=== PATIENT | male | born 1980 | race Caucasian/White ===

== ENCOUNTER 2016-09-25 11:43 | Emergency (ER) | payer SELFPAY ==
[2016-09-25 12:24] VITALS: BP 128/76
--- NOTE | 2016-09-25 12:50 | UC ---
Cardiac HPI - HPI Summary HPI Summary: 5 DAYS AGO DEVELOPED LEFT MID/UPPER BACK PAIN. [facility] [place] 3 DAYS AGO AND TX FOR MUSCLE STRAIN WITH MELOXICAM AND TIZANIDINE. PAIN HAS WORSENED. RADIATES THROUGH TO LEFT LATERAL CHEST. DENIES SOB, NAUSEA OR SWEATS. - History of Current Complaint Chief Complaint: UCBackPain Stated Complaint: SHOULDER, RIB AND CHEST PAIN Time Seen by Provider: 09/25/16 12:12 Hx Obtained From: Patient Onset/Duration: Gradual Onset, Lasting Days, Still Present Timing: Constant Initial Severity: Moderate Current Severity: Moderate Pain Intensity: 6 Chest Pain Location: Left Lateral Aggravating: Exertion, Movement, Nothing - TOUCH Alleviating: Nothing Associated Signs & Symptoms: Positive: Chest Pain, Back Pain. Negative: SOB, Fever, Diaphoresis, Nausea/Vomiting, Palpitations, Cough - Allergy/Home Medications Allergies/Adverse Reactions: Allergies Allergy/AdvReac Type Severity Reaction Status Date / Time No Known Allergies Allergy Verified 06/23/15 17:04 Home Medications: Home Medications Meloxicam [Mobic] 15 mg PO 09/25/16 [History] Pantoprazole TAB (NF) [Protonix TAB (NF)] 09/25/16 [History] Tizanidine HCl [Zanaflex] 09/25/16 [History] PMH/Surg Hx/FS Hx/Imm Hx Previously Healthy: Yes Endocrine History Of: Denies: Diabetes, Thyroid Disease Cardiovascular History Of: Denies: Cardiac Disorders, Hypertension Respiratory History Of: Denies: COPD, Asthma GI/ History Of: Denies: Ulcer - Surgical History Surgical History: None - Family History Known Family History: Positive: Hypertension, Diabetes - Social History Alcohol Use: None Substance Use Type: None Smoking Status (MU): Never Smoked Tobacco Review of Systems Constitutional: Negative Skin: Negative Respiratory: Negative Cardiovascular: Chest Pain Gastrointestinal: Negative Genitourinary: Negative Musculoskeletal: Myalgia All Other Systems Reviewed And Are Negative: Yes Physical Exam Triage Information Reviewed: Yes Appearance: Well-Appearing, Well-Nourished, Pain Distress - SIGNIFICANT PAIN WITH PALPATION OF LEFT MID BACK Vital Signs: Initial Vital Signs Temp 98.1 F 09/25/16 11:52 Pulse 79 09/25/16 11:52 Resp 16 09/25/16 11:52 BP 128/76 09/25/16 11:52 Pulse Ox 98 09/25/16 11:52 Vital Signs Reviewed: Yes Eyes: Positive: Conjunctiva Clear ENT: Positive: Hearing grossly normal Neck: Positive: Supple Respiratory Exam: Normal Cardiovascular Exam: Normal Abdomen Description: Positive: Soft Musculoskeletal: Positive: No Edema, Other: - EXQUISITELY TTP LEFT MID/UPPER BACK. CAN NOT EVEN LAY BACK ON EXAM TABLE Neurological: Positive: Alert Psychological: Positive: Age Appropriate Behavior Skin: Negative: rashes Diagnostics - EKG Cardiac Rate: NL - 74BPM Cardiac Rhythm: Sinus: Normal Ectopy: None ST Segment: Normal - Differential Diagnoses - Chest Pain Differential Diagnosis/HQI/PQRI: ACS, Angina, Aortic Aneurysm, Chest Wall, GI Disease, Pulmonary Embolism, Other: - AORTIC DISSECTION - Clinical Impression Provider Diagnoses: BACK PAIN/CHEST PAIN - Physician Notifications Discussed Patient Care With: DR. AWAN Time Discussed With Above Provider: 12:47 - [place] [facility] [place] Discharge - Discharge Plan Condition: Stable Disposition: TRANS HIGHER LVL OF CARE FAC Referrals: No Primary Care Phys,NOPCP [Primary Care Provider] -
== END 2016-09-25 13:04 | disposition short-term general hospital (02) ==
LOC: UCEAST 11:43
DX: M54.9 Dorsalgia, unspecified (principal); R07.9 Chest pain, unspecified
CPT/HCPCS: 99213; G0463; T1013-GY

== ENCOUNTER 2016-09-25 13:19 | Emergency (ER) | payer SELFPAY ==
[2016-09-25] MEDS ORDERED: Aspirin Low Dose CHEW TAB* 81 MG PO ONE (13:23)
[2016-09-25 13:54] LABS: Hematocrit 46 % (42-52); Hemoglobin 15.3 g/dl (14.0-18.0); Mean Corpuscular HGB Conc 33 g/dl (31-36); Mean Corpuscular Hemoglobin 28 pg (27-31); Mean Corpuscular Volume 83 fL (80-94); Mean Platelet Volume 10 um3 (7.4-10.4); Red Blood Count 5.51 10^6/ul (4.0-5.4); Red Cell Distribution Width 13 % (10.5-15); White Blood Count 5.5 10^3/ul (3.5-10.8)
[2016-09-25] MEDS ORDERED: HYDROcodone/ACETAMIN 5-325 MG* 1 TAB PO ONE (14:06)
[2016-09-25] MEDS ORDERED: Ketorolac INJ* 30 MG/ML 1 ML VIAL IV PUSH ONE (14:06)
[2016-09-25] MEDS ORDERED: Dexamethasone IV* 4 MG/ML 1 ML (4 MG) IM ONE (14:06)
[2016-09-25] MEDS ORDERED: Orphenadrine Citrate IV* 30 MG/ML 2 ML VIAL IV ONE (14:06)
[2016-09-25 14:11] LABS: Albumin 4.2 g/dL (3.2-5.2); BUN/Creatinine Ratio 12.6 (8-20); Calcium 9.4 mg/dL (8.6-10.3); EGFR African American 129.2 (>60); EGFR Non-African American 100.4 (>60); Potassium 3.9 mmol/L (3.5-5.0); Total Bilirubin 0.6 mg/dL (0.2-1.0); Total Protein 7.2 g/dL (6.4-8.9)
--- NOTE | 2016-09-25 14:27 | RAD ---
INDICATION: Chest pain COMPARISON: June 23, 2015 TECHNIQUE: An AP portable view obtained at 1416 hours is submitted. FINDINGS: Bones/Soft Tissues: There are no acute bony findings. Cardiomediastinal: The cardiomediastinal silhouette is normal. Lungs: There are no infiltrates. Pleura: There are no pleural effusions. Other: None IMPRESSION: NO ACTIVE DISEASE.
[2016-09-25] MEDS ORDERED: Iohexol 300* (CONTRAST) 10 ML SDV IV ONE (14:46)
--- NOTE | 2016-09-25 15:31 | RAD ---
INDICATION: Chest and rib pain COMPARISON: Chest x-ray September 25, 2016 TECHNIQUE: Axial source images were obtained from the thoracic inlet to the hemidiaphragms. Coronal and sagittal reconstructed images were acquired. 80 mL Omnipaque 300 The visualized neck to include the thyroid appear normal. Chest wall: There are no acute abnormalities of the bony thorax or chest wall. There is no supraclavicular, infraclavicular, or axillary lymphadenopathy. Lungs : There are no pulmonary parenchymal masses or infiltrates. There is no pneumothorax. The pulmonary interstitium appears normal. There are no endobronchial lesions. Cardiomediastinal structures: The heart is normal in size. There is no pericardial effusion. There is no evidence of aortic aneurysm or dissection. The pulmonary vessels appear normal. There is no mediastinal or hilar adenopathy. The esophagus appears normal. Pleura : There are no pleural-based masses or effusions. Other: There are no acute or significant CT findings of the visualized upper abdomen. IMPRESSION: NO ACUTE CT FINDINGS OF THE CHEST. LUNGS CLEAR.
--- NOTE | 2016-09-25 16:18 | ED ---
I, Oh,Soohyun, scribed for Carlos A Garcia MD on 09/25/16 at 1410 . HPI Chest Pain - HPI Summary HPI Summary: Somewhat limited HPI due to language barrier. Pt is conversing directly in [place] to Dr. Garcia. This 36 y/o male presents to ED for mid back pain radiating to mid sternal chest and rib cage since 4 days ago. Pt was seen by his PCP and was prescribed with pain med and muscle relaxer, but pain still persisted. Pt woke up this morning with the worsening CP and decided to visit ED today. CP is rated as 3-4/ 10. Negative SOB, palpitation, fever, chills, abd pain, or n/v. PMHx includes known chronic GERD that is controlled with Protonix. Pt states that his pain today feels different from his previous bouts of GERD. Nondrinker and nonsmoker. FHx is positive for HTN and DM. - History of Current Complaint Chief Complaint: EDChestPainROMI Time Seen by Provider: 09/25/16 13:23 Hx Obtained From: Patient Onset/Duration: Started Days Ago - 4 days ago, Atraumatic, Still Present Timing: Constant Initial Severity: Mild Current Severity: Moderate Pain Scale Used: 0-10 Numeric Chest Pain Location: Mid Sternal Chest Pain Radiates: Yes Chest Pain Radiates To:: Back, Other - rib cage Character: Dull/Aching Aggravating Factor(s): Nothing Alleviating Factor(s): Nothing Associated Signs and Symptoms: Positive: Chest Pain. Negative: Shortness of Breath, Fever, Chills, Nausea, Abdominal Pain, Vomiting - Allergy/Home Medications Allergies/Adverse Reactions: Allergies Allergy/AdvReac Type Severity Reaction Status Date / Time No Known Allergies Allergy Verified 06/23/15 17:04 PMH/Surg Hx/FS Hx/Imm Hx Endocrine/Hematology History: Denies: Hx Diabetes, Hx Thyroid Disease Cardiovascular History: Denies: Hx Hypertension Respiratory History: Denies: Hx Asthma, Hx Chronic Obstructive Pulmonary Disease (COPD) GI History: Reports: Hx Gastroesophageal Reflux Disease - chronic. Controlled with Protonix Denies: Hx Ulcer Infectious Disease History: Denies: Hx Clostridium Difficile, Hx Hepatitis, Hx Human Immunodeficiency Virus (HIV), Hx of Known/Suspected MRSA, Hx Shingles, Hx Tuberculosis, Hx Known/ Suspected VRE, Hx Known/Suspected VRSA, History Other Infectious Disease - Family History Known Family History: Positive: Hypertension, Diabetes - Social History Alcohol Use: None Hx Substance Use: No Substance Use Type: Reports: None Hx Tobacco Use: No Smoking Status (MU): Never Smoked Tobacco Review of Systems Negative: Fever, Chills Positive: Chest Pain Negative: Shortness Of Breath Negative: Abdominal Pain, Vomiting, Nausea Positive: Other - back pain radiating to mid sternal chest and rib cage All Other Systems Reviewed And Are Negative: Yes Physical Exam - Summary Physical Exam Summary: VITAL SIGNS: Reviewed. GENERAL: Patient is a well developed and nourished male who is lying comfortable in the stretcher. Patient is not in any acute respiratory distress. HEAD AND FACE: No signs of trauma. No ecchymosis, hematomas or skull depressions. No sinus tenderness. EYES: PERRLA, EOMI x 2, No injected conjunctiva, no nystagmus. EARS: Hearing grossly intact. Ear canals and tympanic membranes are within normal limits. MOUTH: Oropharynx within normal limits. NECK: Supple, trachea is midline, no adenopathy, no JVD, no carotid bruit, no c- spine tenderness, neck with full ROM. CHEST: Symmetric, positive tenderness at palpation in between the scapula and left side of the chest. No vertebral tenderness. LUNGS: Clear to auscultation bilaterally. No wheezing or crackles. CVS: Regular rate and rhythm, S1 and S2 present, no murmurs or gallops appreciated. ABDOMEN: Soft, non-tender. No signs of distention. No rebound no guarding, and no masses palpated. Bowel sounds are normal. EXTREMITIES: FROM in all major joints, no edema, no cyanosis or clubbing. NEURO: Alert and oriented x 3. No acute neurological deficits. Speech is normal and follows commands. SKIN: Dry and warm Triage Information Reviewed: Yes Vital Signs Reviewed: Yes Diagnostics - Laboratory Lab Results: Lab Results 09/25/16 Range/Units 13:45 WBC 5.5 (3.5-10.8) 10^3/ul RBC 5.51 H (4.0-5.4) 10^6/ul Hgb 15.3 (14.0-18.0) g/dl Hct 46 (42-52) % MCV 83 (80-94) fL MCH 28 (27-31) pg MCHC 33 (31-36) g/dl RDW 13 (10.5-15) % Plt Count 145 L (150-450) 10^3/ul MPV 10 (7.4-10.4) um3 Neut % (Auto) 56.3 (38-83) % Lymph % (Auto) 36.3 (25-47) % [place] % (Auto) 5.6 (1-9) % Eos % (Auto) 1.1 (0-6) % Baso % (Auto) 0.7 (0-2) % Absolute Neuts (auto) 3.1 (1.5-7.7) 10^3/ul Absolute Lymphs (auto) 2.0 (1.0-4.8) 10^3/ul Absolute Monos (auto) 0.3 (0-0.8) 10^3/ul Absolute Eos (auto) 0.1 (0-0.6) 10^3/ul Absolute Basos (auto) 0 (0-0.2) 10^3/ul Absolute Nucleated RBC 0.01 10^3/ul Nucleated RBC % 0.2 Result Diagrams: 09/25/16 13:45 09/25/16 13:45 Lab Statement: Any lab studies that have been ordered have been reviewed, and results considered in the medical decision making process. - Radiology CXR Xray Interpretation: No Acute Changes Radiology Interpretation Completed By: Radiologist - CT Chest CT Interpretation: No Acute Changes CT Interpretation Completed By: Radiologist - EKG 1329 Cardiac Rate: NL - 74 bpm EKG Rhythm: Sinus Rhythm ST Segment: Normal Chest Pain Course/Dx - Course Assessment/Plan: This 36 y/o male presents to ED for mid back pain radiating to mid sternal chest and rib cage since 4 days ago. Pt was seen by his PCP and was prescribed with pain med and muscle relaxer, but pain still persisted. Pt woke up this morning with the worsening CP and decided to visit ED today. CP is rated as 3-4/10. Negative SOB, palpitation, fever, chills, abdominal pain, or n /v. PMHx includes known chronic GERD that is controlled with Protonix. Pt states that his pain today feels different from his previous bouts of GERD. Nondrinker and nonsmoker. FHx is positive for HTN and DM. Blood test are found within normal limits. CXR with acute disease. Chest CT: NO acute findings of the chest. In the ED course he was given Toradol, Norflex, Decadron for the pain. After medications he is feeling better. He reports that pain resolved. I believe pain is musculoskeletal pain. I have nos suspicion for PE since he is not tachycardic or hypoxic. No ACS since he has no comorbidities, atypical presentation since Monday and troponin negative and EKG shows no ST elevations. CT chest shows no disection or any other pathology. I discussed all the findings and test results with the patient. Patient was instructed to return to the emergency room immediately if any of the symptoms return or worsens. Plan of care was discussed with the patient and understands and agrees. All questions were answered at patient satisfaction. There were no further complaints or concerns. Lung exam before discharge: CTA B/L. Good air exchange. No wheezing or crackles heard. CVS: S1 and S2 present. No murmurs appreciated. Patient is alert and oriented x 3. Patient is hemodynamically stable. Patient will be discharged home with follow up PCP in the next 2-3 days - Chest Pain Differential Diagnosis/HQI/PQRI: ACS, Chest Wall, GI Disease, Lower Respiratory Infection - Diagnoses Provider Diagnoses: Chest wall pain, Back pain Discharge - Discharge Plan Condition: Stable Disposition: HOME Patient Education Materials: Back Pain (ED), Chest Pain (ED) Referrals: [facility] [place] [facility] REFERRAL [Outside] - 2 Days The documentation as recorded by the [place] Soohyun accurately reflects the service I personally performed and the decisions made by me, Carlos A Garcia MD.
[2016-09-25 17:14] VITALS: BP 131/76
== END 2016-09-25 17:13 | disposition home or self-care (01) ==
LOC: ED 13:19
DX: M54.9 Dorsalgia, unspecified (principal); R07.89 Other chest pain
CPT/HCPCS: 36415; 71010; 71260; 80053; 83605; 84484; 85025; 93005; 96374; 96375; 99282; J1100; J1885; J2360

== ENCOUNTER 2019-10-10 19:32 | Emergency (ER) | payer SELFPAY ==
--- NOTE | 2019-10-10 21:51 | ED ---
Throat Pain/Nasal Congestion - HPI Summary HPI Summary: 39 year old male presents with sinus congestion for the past couple weeks. He has been having occasionally shortness breath that lasts for a couple minutes. Denies any chest pain. He states that it occurs randomly and just feels like he can't get a deep breath. He states that he has not had any wheezing. He is concerned that he has asthma. He doesn't smoke. He admits to postnasal drip. He had no fevers. no sore throat. No abdominal pain. No nausea and vomiting. He states that he was using claritin and saline prescribed by his primary. No pain or swelling in calf muscles. No family history of blood clots. No palpitations. The sinus congestion has been intermittent. he was tested negative for covid. - History of Current Complaint Chief Complaint: EDShortnessOfBreath Time Seen by Provider: 10/10/19 21:27 - Allergies/Home Medications Allergies/Adverse Reactions: Allergies Allergy/AdvReac Type Severity Reaction Status Date / Time No Known Allergies Allergy Verified 06/23/15 17:04 Home Medications: Home Medications Meloxicam [Mobic] 15 mg PO 09/25/16 [History] Pantoprazole TAB * [Protonix TAB*] 09/25/16 [History] Tizanidine HCl [Zanaflex] 09/25/16 [History] Fluticasone NASAL SPRAY 50MCG* [Flonase NASAL SPRAY 50MCG*] 1 spray BOTH NARES DAILY #1 btl 10/10/19 [Rx] PMH/Surg Hx/FS Hx/Imm Hx Endocrine/Hematology History: Denies: Hx Diabetes, Hx Thyroid Disease Cardiovascular History: Denies: Hx Hypertension Respiratory History: Denies: Hx Asthma, Hx Chronic Obstructive Pulmonary Disease (COPD) GI History: Reports: Hx Gastroesophageal Reflux Disease - chronic. Controlled with Protonix Denies: Hx Ulcer Infectious Disease History: No Infectious Disease History: Denies: Hx Clostridium Difficile, Hx Hepatitis, Hx Human Immunodeficiency Virus (HIV), Hx of Known/Suspected MRSA, Hx Shingles, Hx Tuberculosis, Hx Known/ Suspected VRE, Hx Known/Suspected VRSA, History Other Infectious Disease, Traveled Outside the [place] in Last 30 Days - Family History Known Family History: Positive: Hypertension, Diabetes Negative: Respiratory Disease - Social History Alcohol Use: None Hx Substance Use: No Substance Use Type: Reports: None Hx Tobacco Use: No Smoking Status (MU): Never Smoked Tobacco Review of Systems Negative: Fever Positive: Nasal Discharge Negative: Chest Pain Positive: Shortness Of Breath - resolved. Negative: Cough All Other Systems Reviewed And Are Negative: Yes Physical Exam Triage Information Reviewed: Yes Vital Signs On Initial Exam: Initial Vitals Temp Pulse Resp BP Pulse Ox 98.6 F 83 16 150/92 99 10/10/19 19:37 10/10/19 19:37 10/10/19 19:37 10/10/19 19:37 10/10/19 19:37 Vital Signs Reviewed: Yes Appearance: Positive: Well-Appearing Skin: Positive: Warm, Dry Head/Face: Positive: Normal Head/Face Inspection Eyes: Positive: Normal, Conjunctiva Clear ENT: Positive: Pharynx normal Respiratory/Lung Sounds: Positive: Clear to Auscultation, Breath Sounds Present Cardiovascular: Positive: Normal, RRR Abdomen Description: Positive: Nontender, Soft Bowel Sounds: Positive: Present Musculoskeletal: Positive: Normal Neurological: Positive: Normal Psychiatric: Positive: Normal Procedures - Sedation Patient Received Moderate/Deep Sedation with Procedure: No Diagnostics - Vital Signs Vital Signs Temp Pulse Resp BP Pulse Ox 10/10/19 19:37 98.6 F 83 16 150/92 99 - Laboratory Lab Statement: Any lab studies that have been ordered have been reviewed, and results considered in the medical decision making process. EENT Course/Dx - Course Course Of Treatment: 39 year old male presents with sinus congestion for the past couple weeks. He has been having occasionally shortness breath that lasts for a couple minutes. Denies any chest pain. He states that it occurs randomly and just feels like he can't get a deep breath. He states that he has not had any wheezing. He is concerned that he has asthma. He doesn't smoke. He admits to postnasal drip. He had no fevers. no sore throat. No abdominal pain. No nausea and vomiting. He states that he was using claritin and saline prescribed by his primary. No pain or swelling in calf muscles. No family history of blood clots. No palpitations. The sinus congestion has been intermittent. On exam lungs CTA. O2 sat is normal. Sinus congestion noted. No sinus tenderness. Discuss with patient likely allergies. We will add on Flonase. Likely is anxiety component with shortness of breath. Patient is requesting a referral to [employer] which gave. told follow up with primary. Patient understands and agrees with the plan. - Differential Diagnoses Differential Diagnoses: Allergic Rhinitis, Sinusitis, URI/Bronchitis - Diagnoses Provider Diagnoses: Nasal congestion - Critical Care Time Critical Care Statement: Critical care time is provided exclusive of any time spent performing procedures. Discharge ED - Sign-Out/Discharge Documenting (check all that apply): Patient Departure - Discharge Plan Condition: Good Disposition: HOME Prescriptions: Fluticasone NASAL SPRAY 50MCG* [Flonase NASAL SPRAY 50MCG*] 1 spray BOTH NARES DAILY #1 btl Patient Education Materials: Allergic Rhinitis (ED) Print Language: GUATEMAL[place] Referrals: [facility] [place] [facility] REFERRAL [Outside] Jesse Biggs MD [Medical Doctor] - Additional Instructions: take flonase one spray each nostril daily use nasal saline in nose Establish care with primary A referral was also given for [employer] Return to ED if develop any new or worsening symptoms - Billing Disposition and Condition Condition: GOOD Disposition: Home
[2019-10-10 22:28] VITALS: BP 131/76
== END 2019-10-10 22:28 | disposition home or self-care (01) ==
LOC: ED 19:32
DX: R09.81 Nasal congestion (principal); R06.02 Shortness of breath; K21.9 Gastro-esophageal reflux disease without esophagitis
CPT/HCPCS: 99282